=== PATIENT | male | born 2000 | race Caucasian/White ===

== ENCOUNTER 2021-11-21 05:47 | Inpatient (IN) ==
[2021-11-21] MEDS ORDERED: Famotidine IV 10 MG/ML 2 ml VIAL (20 mg) IV ONE (06:00)
[2021-11-21] MEDS ORDERED: Lactated Ringers 1000 ml BAG 1,000 ML IV SCH (06:00)
[2021-11-21] MEDS ORDERED: Buffered Lidocaine 1% SYRIN 1 ml INTRADERM ONE (06:00)
[2021-11-21] MEDS ORDERED: Scopolamine 1 mg/72hr PATCH TRANSDERM ONE (06:00)
[2021-11-21] MEDS ORDERED: Scopolamine 1 mg/72hr PATCH ONE (06:27)
[2021-11-21] MEDS ORDERED: ceFAZolin 2 GM in NS PREMIX 2 GM/100 ML BAG IVPB ONE (06:28)
[2021-11-21] MEDS ORDERED: Famotidine IV 10 MG/ML 2 ml VIAL (20 mg) ONE (06:28)
[2021-11-21] MEDS ORDERED: Heparin 5000 UNITS/ML 1 mL VIAL ONE (06:28)
[2021-11-21 06:50] LABS: Potassium 3.9 mmol/L (3.5-5.0); eGFR CKD-EPI 130.6 (>60)
[2021-11-21] MEDS ORDERED: Methylene Blue 0.5 % 50 MG/10 ML AMP IV ONE (06:51)
[2021-11-21] MEDS ORDERED: Lidocaine 2% w/ EPI 1:200,000 MPF 20 ML SDV VIAL ONE (06:52)
[2021-11-21] MEDS ORDERED: Bupivacaine 0.5% 50 ML MDV VIAL ONE (06:52)
[2021-11-21 06:53] LABS: Rapid COVID-19 Molecular Undetected (Undetected)
[2021-11-21] MEDS ORDERED: ceFAZolin VIAL 1 GM in NS 0.9% 50 ML 50 ML IVPB ONE (07:00)
[2021-11-21] MEDS ORDERED: Bupivacaine 0.25% w/EPI 10 ML SDV ONE ×2 (07:11)
[2021-11-21] MEDS ORDERED: Rocuronium 50 mg VIAL 10 mg/ml 5 ml VIAL (50 mg) ONE ×2 (07:16→09:07)
[2021-11-21] MEDS ORDERED: Midazolam 2 mg/2 ml VIAL 1 mg/ml 2 ml VIAL (2 mg) ONE (07:16)
[2021-11-21] MEDS ORDERED: fentaNYL 250 mcg/5 ml 50 MCG/ML 5 ml VIAL (250 MCG) ONE (07:17)
[2021-11-21] MEDS ORDERED: Propofol 10 MG/ML 20 ML BTL ONE (07:19)
[2021-11-21] MEDS ORDERED: Sugammadex 500 MG/5 ML 5 ml VIAL IV PUSH ONE (08:46)
[2021-11-21] MEDS ORDERED: Dexamethasone IV 4 MG/ML VIAL 1 ml VIAL ONE (08:46)
[2021-11-21] MEDS ORDERED: Ondansetron 4 mg VIAL 2 MG/ML 2 ml VIAL ONE ×2 (08:46→11:14)
[2021-11-21] MEDS ORDERED: HYDROmorphone 0.5 MG/0.5 ML SYRINGE ONE (08:54)
[2021-11-21] MEDS ORDERED: Acetaminophen IV 1 GM/100ML 100 ML IV ONE (09:40)
[2021-11-21] MEDS ORDERED: HYDROmorphone 1 MG/1 ML SYRINGE IV PRN (10:09)
[2021-11-21] MEDS ORDERED: Metoclopramide 5 MG/ML VIAL (10 mg) IV PRN (10:09)
[2021-11-21] MEDS ORDERED: Ondansetron 4 mg VIAL 2 MG/ML 2 ml VIAL IV PRN ×2 (10:09→10:52)
[2021-11-21] MEDS ORDERED: fentaNYL 100 mcg/2 ml 50 MCG/ML VIAL IV PRN (10:09)
[2021-11-21] MEDS ORDERED: Naloxone 0.4 mg VIAL 0.4 mg/ml 1 ml VIAL IV PRN (10:09)
[2021-11-21] MEDS ORDERED: Acetaminophen IV 1 GM/100ML 100 ML IV PRN (10:52)
[2021-11-21] MEDS ORDERED: HYDROcodone/ACET. 7.5/325 LIQ 15 ML UDC PO PRN (10:52)
[2021-11-21] MEDS ORDERED: diPHENhydraMINE IV 50 MG/ML 1 ml VIAL (BENADRYL) SLOW PUSH PRN (10:52)
[2021-11-21] MEDS ORDERED: HYDROmorphone 1 MG/1 ML SYRINGE IV SLOW PU PRN (10:52)
[2021-11-21] MEDS ORDERED: HYDROmorphone 0.5 MG/0.5 ML SYRINGE IV SLOW PU PRN (10:52)
[2021-11-21] MEDS ORDERED: fentaNYL 100 mcg/2 ml 50 MCG/ML VIAL ONE (12:07)
[2021-11-21] MEDS: Lactated Ringers 1000 ml BAG 1,000 ML IV SCH ×2 (12:56→19:09)
[2021-11-21] MEDS: Heparin 5000 UNITS/ML 1 mL VIAL SUBCUT SCH ×2 (14:26→21:48)
[2021-11-21] MEDS: Famotidine IV 10 MG/ML 2 ml VIAL (20 mg) IV SLOW PU SCH (21:48)
[2021-11-22] MEDS: Lactated Ringers 1000 ml BAG 1,000 ML IV SCH ×2 (02:33→08:25)
[2021-11-22] MEDS: Heparin 5000 UNITS/ML 1 mL VIAL SUBCUT SCH (06:13)
[2021-11-22] MEDS: Famotidine IV 10 MG/ML 2 ml VIAL (20 mg) IV SLOW PU SCH (08:25)
[2021-11-22] MEDS ORDERED: D5W 1/2 NS KCl 20 meq 1000 ml 1,000 ML IV SCH (11:00)
[2021-11-22 11:16] VITALS: BP 104/71
== END 2021-11-22 13:07 | disposition home or self-care (01) | DRG 403 ==
LOC: AA 05:47 → SSU 13:04
PROVIDERS: ADMIT Surgery; ATTEND Surgery